=== PATIENT | female | born 2005 | race Caucasian/White ===

== ENCOUNTER 2024-12-17 20:36 | Emergency (ER) | payer MEDICAID ==
[~2024-12-17] VITALS: Ht 154.9 cm; Wt 104.3 kg
[2024-12-17] MEDS ORDERED: DOCU-141 PO (21:13)
[2024-12-17 22:04] VITALS: BP 138/80; TEMP 98.4; O2SAT 100
== END 2024-12-17 22:04 | disposition home or self-care (01) ==
LOC: ER 20:45
DX: K59.00 Constipation, unspecified (principal); R03.0 Elevated blood-pressure reading, without diagnosis of hypertension